=== PATIENT | male | born 1970 | race African-American/Black ===

== ENCOUNTER 2021-11-13 02:49 | Emergency (ER) | payer BC, OTHER ==
[~2021-11-13] VITALS: Ht 188 cm; Wt 118.0 kg
[2021-11-13 04:55] VITALS: BP 123/68
== END 2021-11-13 06:53 | disposition home or self-care (01) ==
LOC: M ED 02:49 → EDBD 02:49 → M ED 06:53
DX: F10.129 Alcohol abuse with intoxication, unspecified (principal); I10 Essential (primary) hypertension; G89.29 Other chronic pain; M25.552 Pain in left hip